=== PATIENT | male | born 1980 | race Caucasian/White ===

== ENCOUNTER 2021-10-30 14:36 | Emergency (ER) | payer OTHER ==
[~2021-10-30] VITALS: Ht 182.9 cm; Wt 104.3 kg
--- NOTE | 2021-10-30 14:55 | NUR ---
SUDDEN RT EYE BLURRED VISION & PALPITATION THIS AM. HX OF ANXIETY. PT AAOX4, RR EVEN & UNLABORED. DENIES CP, SOB, DIZZINESS, N/V, NUMBNESS/TINGLING SENSATION AT THIS TIME. AWAITING EVAL BY [facility]. WILL CONT TO MONITOR.
--- NOTE | 2021-10-30 15:05 | NUR ---
DR. LACY AT FOR [facility].
[2021-10-30 17:03] LABS: BASOPHILS # (AUTO) 0.1 K/uL (0.0-0.2); BASOPHILS % (AUTO) 0.7 % (0.0-2.0); HEMATOCRIT 45 % (39-51); HEMOGLOBIN 15.4 g/dL (13.5-17.5); LYMPHOCYTES # (AUTO) 1.3 K/uL (0.8-4.8); LYMPHOCYTES % (AUTO) 13.2 % (20.0-44.0); MEAN CORPUSCULAR HGB CONC 35 g/dl (31.0-36.0); MEAN CORPUSCULAR VOLUME 90 fL (80-96); MONOCYTES # (AUTO) 0.7 K/uL (0.1-1.30); MONOCYTES % (AUTO) 7.5 % (2.0-12.0); NEUTROPHILS # (AUTO) 7.5 K/uL (1.8-8.9); NEUTROPHILS % (AUTO) 77.6 % (43.0-81.0); PLATELET COUNT (AUTO) 248 K/uL (150-450); RED BLOOD CELL COUNT(AUTO) 4.93 MIL/uL (4.5-6.0); WHITE BLOOD COUNT (AUTO) 9.7 K/uL (4.3-11.0)
[2021-10-30 17:30] LABS: ALANINE AMINOTRANSFERASE 37 U/L (12-78); ALBUMIN 4.2 g/dL (3.4-5.0); ALKALINE PHOSPHATASE 71 U/L (46-116); ASPARTATE AMINOTRANSFERASE 23 U/L (15-37); BILIRUBIN,DIRECT 0.2 mg/dL (0.0-0.2); CALCIUM, SERUM 9.2 mg/dL (8.5-10.1); CARBON DIOXIDE 25 mmol/L (21-32); CHLORIDE 105 mmol/L (98-107); CREATININE 0.9 mg/dL (0.6-1.3); GLUCOSE 106 mg/dL (74-106); POTASSIUM 4.3 mmol/L (3.5-5.1); SODIUM SERUM 140 mmol/L (136-145); TOTAL PROTEIN, SERUM 7.8 g/dL (6.4-8.2); UREA NITROGEN, BLOOD 15 mg/dL (7-18)
--- NOTE | 2021-10-30 17:32 | NUR ---
PT DENIES CP, SOB, DIZZINESS, PALPITATION, N/V AT THIS TIME. WILL CONT TO MONITOR.
--- NOTE | 2021-10-30 19:29 | NUR ---
Patient discharged to home in stable condition. Written and verbal after care instructions given. Patient verbalizes understanding of instruction.
[2021-10-30 19:30] VITALS: BP 151/85
== END 2021-10-30 19:31 | disposition home or self-care (01) ==
LOC: ER 14:41
DX: F41.9 Anxiety disorder, unspecified (principal); Z60.2 Problems related to living alone
CPT/HCPCS: 36415; 71045-TC; 80048-TC; 80076-TC; 84484-TC; 85025-TC